=== PATIENT | male | born 1930 | race Caucasian/White ===

== ENCOUNTER → 2018-01-12 | Outpatient (CLI) | payer MEDICARE ==
--- NOTE | 2018-01-12 11:19 | XR ---
EXAMINATION TYPE: XR lumbosacral spine min 4V DATE OF EXAM: 01/12/2018 CLINICAL HISTORY: Low back pain for 3 months. TECHNIQUE: Frontal, lateral, and oblique images of the lumbar spine are obtained. COMPARISON: None FINDINGS: There are 5 lumbar type vertebral bodies identified. The lumbar spine shows prominent lev oconvex scoliosis centered at L3 level. Spine is straightened on lateral images. Vertebral body heigh ts are within normal limits. There is fairly advanced disc space narrowing right L2-L3 level. There is moderate to advanced disc space narrowing L5-S1 level. There is moderate disc space narrowing L4-L 5 level. There is advanced multilevel anterior and lateral spurring. Value of oblique images is compr omised by overlying scoliosis. There is vascular calcification of overlying abdominal aorta which is more prominent are ectatic L4 level inferiorly. Can't exclude aneurysm. Cholecystectomy clips are see n. Multilevel facet arthropathy is present mid to lower lumbar spine IMPRESSION: Scoliosis and multilevel degenerative changes as detailed above. Possible distal AAA. Adv ise ultrasound follow-up.
== END ==
LOC: RADXRMAIN 10:28
PROVIDERS: ATTEND Internal Medicine
DX: M41.9 Scoliosis, unspecified (principal); M51.36 Other intervertebral disc degeneration, lumbar region; M51.37 Other intervertebral disc degeneration, lumbosacral region
CPT/HCPCS: 72110

== ENCOUNTER 2018-04-18 08:16 | Emergency (ER) | payer MEDICARE ==
--- NOTE | 2018-04-18 08:37 | ED ---
General Adult HPI - General Chief complaint: Extremity Injury, Upper Stated complaint: wrist pain Time Seen by Provider: 04/18/18 08:30 Source: patient, RN notes reviewed Mode of arrival: ambulatory Limitations: no limitations - History of Present Illness Initial comments: Patient 88-year-old male presented to the emergency room today with a chief complaint of injury to the right wrist that occurred 2 days ago. Patient has not that he was carrying a time when he lost following for onto an outstretched hand. Patient states she's had some pain over the distal ulna and fifth metacarpal area. Patient does not that it's worse with certain movements. Admits to some swelling. Denies any other complaints. Patient denies any recent fever, chills, shortness of breath, chest pain, back pain, abdominal pain , nausea or vomiting, headaches or visual changes, or any other complaints. - Related Data Home Medications Medication Instructions Recorded Confirmed Fosinopril Sodium [Monopril] 40 mg PO DAILY 01/18/14 01/25/16 Metoprolol Succinate [Toprol XL] 50 mg PO DAILY 01/18/14 01/23/16 Atorvastatin [Lipitor] 10 mg PO DAILY 01/23/16 01/25/16 Ranitidine HCl [Zantac] 150 mg PO BID 01/23/16 01/23/16 amLODIPine [Norvasc] 2.5 mg PO DAILY 01/23/16 01/23/16 Allergies Allergy/AdvReac Type Severity Reaction Status Date / Time No Known Allergies Allergy Verified 04/18/18 08:20 Review of Systems ROS Statement: Those systems with pertinent positive or pertinent negative responses have been documented in the HPI. ROS Other: All systems not noted in ROS Statement are negative. Past Medical History Past Medical History: Coronary Artery Disease (CAD), GERD/Reflux, Hyperlipidemia , Hypertension, Osteoarthritis (OA) History of Any Multi-Drug Resistant Organisms: None Reported Past Surgical History: Cholecystectomy, Heart Catheterization With Stent, Hernia Repair Past Anesthesia/Blood Transfusion Reactions: No Reported Reaction Date of Last Stent Placement:: 1998 Smoking Status: Former smoker Past Alcohol Use History: None Reported Past Drug Use History: None Reported - Past Family History Sister(s) Family Medical History: Cancer Father Family Medical History: CVA/TIA General Exam - General Exam Comments Initial Comments: General: The patient is awake and alert, in no distress, and does not appear acutely ill. Neck: The neck is supple, there is no tenderness or JVD. Cardiovascular: There is a regular rate and rhythm. No murmur, rub or gallop is appreciated. Respiratory: Lungs are clear to auscultation, respirations are non-labored, breath sounds are equal. No wheezes, stridor, rales, or rhonchi. Musculoskeletal: Patient does have some moderate swelling down to the right wrist. Mild tenderness over the distal ulna. Radial pulses 2+. Strength 5/5. Sensations intact. No tenderness to the right elbow right shoulder Neurological: A&O x 3. CN II-XII intact, There are no obvious motor or sensory deficits. Coordination appears grossly intact. Speech is normal. Skin: Skin is warm and dry and no rashes or lesions are noted. Psychiatric: Normal mood and affect. Limitations: no limitations Course Vital Signs 04/18/18 08:18 Temperature 97.3 F L Pulse Rate 62 Respiratory 18 Rate Blood Pressure 157/88 O2 Sat by Pulse 98 Oximetry Medical Decision Making - Medical Decision Making Patient's x-ray reviewed as negative for any acute fracture dislocation. Results were discussed with the patient. Patient advised most likely respiratory this time. He is advised follow-up with orthopedics or family physician for repeat x-rays in 10 days if symptoms persist. Disposition Clinical Impression: Right wrist sprain Disposition: HOME SELF-CARE Condition: Good Instructions: Wrist Sprain (ED) Additional Instructions: Please continue to ice elevate the affected area at least 4 times a day for 20 minutes at a time. Please use Tylenol/ibuprofen for pain. Please follow-up in 7-10 days for repeat x-rays if symptoms persist. Please return to emergency room for any other concerns. Is patient prescribed a controlled substance at d/c from ED?: No Referrals: Sukhdeep Tang MD [Primary Care Provider] - 1-2 days Gaetano Pruett MD [STAFF PHYSICIAN] - 1-2 days Time of Disposition: 09:28
--- NOTE | 2018-04-18 09:06 | XR ---
EXAMINATION TYPE: XR wrist complete RT DATE OF EXAM: 04/18/2018 CLINICAL HISTORY: Pain and swelling after fall injury 2 days ago. TECHNIQUE: Frontal, lateral , scaphoid, and oblique images of the right wrist are obtained. COMPARISON: None FINDINGS: Demineralization is seen which is noted to lower radiographic sensitivity. There is calcifi cation of triangular fibrocartilage at level of distal ulna. There is no acute fracture/dislocation e vident in the right wrist. Mild to moderate Radiocarpal joint space loss is seen. Some subchondral c ystic change throughout the carpal rows is present. The overlying soft tissue appears unremarkable. IMPRESSION: There is no acute fracture or dislocation in the right wrist.
[2018-04-18 10:06] VITALS: BP 128/74; PULSE 78; RESP 16; TEMP 97.8
== END 2018-04-18 09:45 | disposition home or self-care (01) ==
LOC: EC 08:16
DX: S63.501A Unspecified sprain of right wrist, initial encounter (principal); I25.10 Atherosclerotic heart disease of native coronary artery without angina pectoris; I10 Essential (primary) hypertension; K21.9 Gastro-esophageal reflux disease without esophagitis; E78.5 Hyperlipidemia, unspecified; Z79.899 Other long term (current) drug therapy; Z95.5 Presence of coronary angioplasty implant and graft; Z87.891 Personal history of nicotine dependence; W19.XXXA Unspecified fall, initial encounter; Y92.009 Unspecified place in unspecified non-institutional (private) residence as the place of occurrence of the external cause
CPT/HCPCS: 99283

== ENCOUNTER → 2018-09-08 | Outpatient (CLI) | payer MEDICARE ==
--- NOTE | 2018-09-08 16:56 | US ---
EXAMINATION TYPE: US venous doppler duplex LE RT DATE OF EXAM: 09/08/2018 11:01 AM COMPARISON: NONE CLINICAL HISTORY: M79.661 Pain in right lower leg. Warmness to right knee and lower leg. Pain right l ower leg SIDE PERFORMED: right TECHNIQUE: The lower extremity deep venous system is examined utilizing real time linear array sonog tracey with graded compression, doppler sonography and color-flow sonography. VESSELS IMAGED: External Iliac Vein (EIV) Common Femoral Vein Deep Femoral Vein Greater Saphenous Vein * Femoral Vein Popliteal Vein Small Saphenous Vein * Proximal Calf Veins (* superficial vessels) Right Leg: No evidence of DVT as visualized IMPRESSION: 1. Right lower extremity ultrasound negative for deep venous thrombosis.
== END | disposition home or self-care (01) ==
LOC: RADUSWWP 10:41
PROVIDERS: ATTEND Internal Medicine
DX: M79.661 Pain in right lower leg (principal)